=== PATIENT | female | born 1970 | race Caucasian/White ===

== ENCOUNTER 2019-07-19 08:29 | Emergency (ER) | payer OTHER, SELFPAY ==
[2019-07-19 08:39] VITALS: BP 140/91; PULSE 115; RESP 18; TEMP 36.8; O2SAT 100
--- NOTE | 2019-07-19 09:26 | ED.URI ---
HPI - URI/Sore Throat General Chief Complaint: Upper Respiratory Infection Stated Complaint: Cough Time Seen by Provider: 07/19/19 09:27 Source: patient Mode of arrival: ambulatory Limitations: no limitations History of Present Illness HPI Narrative: 49 year old female who presents to [facility] care with complaints of intermittent headaches, chills cough, hoarseness, fatigue and generalized malaise or the past 5 days. Patient states that she continues to have a dry cough, raspy voice with intermittent headaches and chills, has felt feverish at times. Patient states that she rested in bed almost all weekend and has felt weak, reports intermittent headache in frontal region, denies any sore throat or any ear pain or dizziness. Patient states that she did take a flu shot this year. MD elicited complaint: cough and other (headache, chills) Onset (ago): day(s) (since Wednesday 5 days) Consistency: intermittent Severity: mild Pain scale (0-10): 3 Description of mucous: other (dry cough) Able to tolerate fluids by mouth: Yes Exacerbating factors: exertion and deep breaths Relieving factors: nothing Associated symptoms: chills, voice changes, headache and cough Treatments prior to arrival: other (Delsym cough syrup and cold medications) Related Data Home Medications Medication Instructions Recorded Confirmed cetirizine 10 mg PO DAILY 07/19/19 07/19/19 folic acid 20 mg PO DAILY 07/19/19 07/19/19 garlic 1,000 mg PO DAILY 07/19/19 07/19/19 Allergies Allergy/AdvReac Type Severity Reaction Status Date / Time No Known Allergies Allergy Verified 07/19/19 08:46 Review of Systems Review of Systems: Narrative: CONSTITUTIONAL:Reports feverish, chills, or sweats. EYES: Denies visual changes, redness, or discharge. ENT: Denies rhinorrhea, congestion, sore throat, or otalgia. CARDIOVASCULAR: Denies chest pain, palpitations, or edema. RESPIRATORY:poitive for cough no dyspnea. GASTROINTESTINAL: Denies abdominal pain, nausea, vomiting, or diarrhea. GENITOURINARY: Denies dysuria or hematuria. SKIN: Denies rash or itching. MUSCULOSKELETAL: Denies back pain, joint pain, or myalgia. NEUROLOGIC:Positive for headache, no numbness,generalized weakness and fatigue PSYCHIATRIC: Denies anxiety or depression. All systems reviewed & are unremarkable except as noted in HPI and below PMFSH Past Medical History Medical History (Updated 07/22/19 @ 16:49 by Jammie Ford NP) No significant past medical history Surgical History Surgical History (Updated 07/22/19 @ 16:45 by Jammie Ford NP) Hx of laparoscopy Social History Social History (Updated 07/22/19 @ 16:45 by Jammie Ford NP) Smoking status: Never smoker Living arrangements: with family Gender identity (if verbalized by the patient): Female Comments At time of signature, agree with nursing past medical, social history. There is no relevant family history pertinent to the presenting complaint Exam Narrative: Exam Narrative: GENERAL: Well-appearing, well-nourished, and in no acute distress. HEAD: Normocephalic, atraumatic. EYES: PERRLA and EOMI. ENT: Nares clear, no rhinorrhea or epistaxis. Mucous membranes moist.Tm's normal with good light reflex, throat pink with no drainage or swelling, no lesions or exudate NECK: Supple.no lymphadenopathy CHEST: Clear to auscultation. No respiratory distress.SAO2 100% on room air HEART: Regular rate and rhythm. No murmur heard. Normal peripheral pulses. ABDOMEN: Soft, nontender, nondistended, normal active bowel sounds. EXTREMITIES: Normal range of motion. No edema. SKIN: Warm, dry, no rash. NEURO: No focal deficits. Alert and oriented x3. Course Vital Signs Vital signs: Vital Signs Temperature 36.8 C 07/19/19 08:39 Pulse Rate 115 H 07/19/19 08:39 Respiratory Rate 18 07/19/19 08:39 Blood Pressure 140/91 H 07/19/19 08:39 Pulse Oximetry 100 07/19/19 08:39 Temperature 36.8 C 07/19/19 08:39 Pulse Rate 11
== END 2019-07-19 09:48 | disposition home or self-care (01) ==
PROVIDERS: Emergency Provider Registered Nurse
DX: J06.9 Acute upper respiratory infection, unspecified (principal)
CPT/HCPCS: 87804; 99213; G0463

== ENCOUNTER 2020-03-26 02:15 | Emergency (ER) | payer OTHER, SELFPAY ==
[2020-03-26] VITALS (14 sets, daily range): BP systolic 106–133; BP diastolic 67–85; PULSE 74–89; RESP 14–23; TEMP 36.8; O2SAT 100
--- NOTE | ~2020-03-26 | CT_ITS ---
EXAMINATION: CT abdomen pelvis w con DATE: 03/26/2020 03:43 INDICATION: Lower abdominal pain TECHNIQUE: Computed tomography (CT) of the abdomen and pelvis was performed with 100 cc Omnipaque 350 intravenous contrast. Automated exposure control and iterative reconstruction technique were employe d. Exam dose: 293.62 mGy-cm total exam DLP. COMPARISON: None. FINDINGS: The lung bases are clear of infiltrate or consolidation. Normal heart size. No pericardial or pleural effusion. There is mild periportal and gallbladder wall edema which can be seen with aggressive hydration or ot her etiologies. The liver, spleen, pancreas, and adrenal glands and kidneys are otherwise unremarkable. No bile duct or pancreatic duct dilatation. Normal caliber of the abdominal aorta. No intraperitoneal or retroperitoneal or pelvic mass lesion or adenopathy is evident. No urinary tract calculus or hydroureteronephrosis. The urinary bladder is unremarkable. Probable right corpus luteum cyst. Bilateral probable ovarian cysts. There is mild to moderate free f luid in the pelvis and adnexal areas. The uterus measures approximately 9 cm height, up to 5 cm anter oposterior dimension. The endometrial cavity measures up to 11 mm AP dimension. This is nonspecific a nd could be due to blood within the endometrium or endometrial malignancy. Consider pelvic ultrasound examination. Included skeletal structures are unremarkable. IMPRESSION: Consider pelvic ultrasound for prominence of the endometrial cavity and mild/moderate fr ee pelvic fluid Probable ruptured right ovarian cyst, probable bilateral ovarian cysts Mild periportal and gallbladder wall edema Reviewed, dictated and finalized at [facility]. Reviewed, dictated and finalized at [facility]. IMPRESSION: Consider pelvic ultrasound for prominence of the endometrial cavit y and mild/moderate free pelvic fluid Probable ruptured right ovarian cyst, probable bilateral ovarian cysts Mild periportal and gallbladder wall edema
--- NOTE | 2020-03-26 02:13 | ED.ABDPAIN ---
HPI - Abdominal Pain General Chief Complaint: Abdominal Pain Stated Complaint: low abd pain Source: patient and EMS Mode of arrival: EMS Limitations: no limitations History of Present Illness HPI narrative: Patient is a 49-year-old female with a history of hyperlipidemia who presents for evaluation of pelvic pain. Patient states pain began suddenly approximately 1 hour prior to arrival when the patient awakened to go to the restroom, needed to urinate and after urination develop a severe cramping sensation in her lower pelvis. Pain has currently subsided quite a bit from when she initially called EMS. Pain currently rated as mild in nature in the lower pelvis without radiation. Patient denied any dysuria or hematuria. She reports she has had an achy pain in her back over the past several days. She denies any current back pain. She denies any vaginal bleeding or vaginal discharge. She is sexually active with her . Last intercourse was 2 days ago. 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 Patient has had negative test. Patient denies fever, chills, cough, chest pain, shortness of breath or upper abdominal pain. Related Data Home Medications Medication Instructions Recorded Confirmed cetirizine 10 mg PO DAILY 07/19/19 07/19/19 folic acid 20 mg PO DAILY 07/19/19 07/19/19 garlic 1,000 mg PO DAILY 07/19/19 07/19/19 multivit with min-folic acid tablet PO 03/26/20 [Adult Multivitamin Gummies] Allergies Allergy/AdvReac Type Severity Reaction Status Date / Time No Known Allergies Allergy Verified 03/26/20 02:33 Review of Systems Review of Systems: Narrative: CONSTITUTIONAL: Denies fever, chills, or sweats. ENT: Denies rhinorrhea, congestion, sore throat, or otalgia. CARDIOVASCULAR: Denies chest pain, palpitations, or edema. RESPIRATORY: Denies cough or dyspnea. GASTROINTESTINAL: Reports lower abdominal pain, pelvic pain, denies nausea, vomiting or diarrhea GENITOURINARY: Denies dysuria or hematuria. SKIN: Denies rash or itching. MUSCULOSKELETAL: Denies current back pain, joint pain, or myalgia. NEUROLOGIC: Denies headache, numbness, or weakness. [facility] [place] Past Medical History Medical History No significant past medical history Surgical History Surgical History Hx of laparoscopy Social History Social History Smoking status: Never smoker Gender identity (if verbalized by the patient): Female Exam Narrative: Exam Narrative: GENERAL: Awake, alert, conversant HEAD: Normocephalic, atraumatic. EYES: PERRLA and EOMI. ENT: Nares clear, no rhinorrhea or epistaxis. Mucous membranes moist. NECK: Supple. CHEST: No respiratory distress, breathing even and non labored HEART: Regular rate, sinus rhythm ABDOMEN:Non distended, mild suprapubic tenderness, no guarding, no focal right or left lower quadrant tenderness, no rebound, nonrigid EXTREMITIES: Normal range of motion. No edema. SKIN: Warm, dry, no rash. NEURO:No focal deficits. Alert and oriented x3 Course Vital Signs Vital signs: Vital Signs Temperature 36.8 C 03/26/20 02:16 Pulse Rate 89 03/26/20 02:16 Respiratory Rate 14 03/26/20 02:16 Blood Pressure 119/68 03/26/20 02:16 Pulse Oximetry 100 03/26/20 02:16 Temperature 36.8 C 03/26/20 02:16 Pulse Rate 84 03/26/20 03:27 Respiratory Rate 23 H 03/26/20 03:27 Blood Pressure 127/74 03/26/20 03:27 Pulse Oximetry 100 03/26/20 03:27 MDM - Abdominal Pain MDM Narrative Medical decision making narrative: Patient presented for evaluation of lower pelvic pain after urination. At the time of assessment, pain has subsided quite a bit. Very minimal tenderness on exam. No recent trauma, intercourse, vaginal discharge. No history of sexu
[2020-03-26] MEDS: SODIUM CHLORIDE 0.9% IV 1,000 ML 999 ML IV CONT (02:48)
[2020-03-26 02:59] LABS: Basophils Absolute Auto 0.1 K/mm3 (0.0-0.1); Basophils Percent Auto 1.4 % (0.2-1.2); Eosinophils Absolute Auto 0.1 K/mm3 (0-0.3); Eosinophils Percent Auto 2.9 % (0-4.4); Hematocrit 38.5 % (37.0-47.0); Hemoglobin 13.1 g/dL (12.0-15.0); Lymphocytes Percent Auto 40.5 % (18.3-44.2); Mean Corpuscular Hemoglobin 32.3 pg (26-34); Mean Corpuscular Volume 94.8 fl (80-100); Mean Platelet Volume 9.3 fl (7.4-10.4); Monocytes Absolute Auto 0.3 K/mm3 (0.1-0.6); Monocytes Percent Auto 7.5 % (2.6-8.5); Neutrophils Absolute Auto 1.7 K/mm3 (1.3-6.7); Neutrophils Percent Auto 47.7 % (45.5-73.1); Platelet Count Result 184 k/mm3 (150-375); Red Blood Count 4.06 M/mm3 (4.2-5.4); Red Cell Distribution Width 12.8 % (11.5-14.5); White Blood Count 3.5 K/mm3 (4.5-10.0)
[2020-03-26 03:12] LABS: Alanine Aminotransferase 15 U/L (4-35); Albumin Level 3.7 g/dL (3.5-5.1); Alkaline Phosphatase 69 U/L (38-126); Anion Gap 5 mmol/L (8-16); Aspartate Amino Transferase 24 U/L (14-36); Bilirubin,Total 0.6 mg/dL (0.2-1.3); Blood Urea Nitrogen 10 mg/dL (7-17); Calcium 8.8 mg/dL (8.4-10.2); Carbon Dioxide 31 mmol/L (22-30); Chloride 102 mmol/L (98-107); Estimated CRCL calculation 83 ml/min; Estimated Glomerular Filt Rate > 60; Glucose 95 mg/dL (65-105); Lipase 286 U/L (23-300); Potassium 3.7 mmol/L (3.4-5.0); Sodium 138 mmol/L (137-145)
[2020-03-26 03:51] LABS: Add Urine Microscopic? YES; Appearance Urine Clear (Clear); Bacteria Urine Trace /hpf; Bilirubin Urine Negative (Negative); Blood Urine Negative (Negative); Color Urine Straw (Yellow); Glucose Urine UA Negative (Negative); Ketones Urine Negative (Negative); Leukocyte Esterase Ur 1+ LEU/UL (Negative); Mucus Urine Rare /lpf; Nitrate Urine Negative (Negative); Protein Urine Negative (Negative); RBC Urine 0-2 /hpf (0-2); Squamous Epithelial Cell Urine Moderate /hpf (Few); Urobilinogen Urine Negative mg/dL (<2.0); WBC Urine 21-30 /hpf
== END 2020-03-26 05:15 | disposition home or self-care (01) ==
PROVIDERS: Emergency Provider Emergency Medicine
DX: R10.30 Lower abdominal pain, unspecified (principal); E78.5 Hyperlipidemia, unspecified; R93.89 Abnormal findings on diagnostic imaging of other specified body structures; R93.2 Abnormal findings on diagnostic imaging of liver and biliary tract
CPT/HCPCS: 36415; 74177; 80053; 81001; 81025; 82948; 83690; 85025; 87086; 87088; 96365; 99284; J0131; J7030; Q9967

== ENCOUNTER 2023-05-03 01:12 | Day surgery (SDC) | payer OTHER, SELFPAY ==
[2023-04-15 13:52] VITALS: BMI 22.3
--- NOTE | 2023-04-30 08:57 | SUR.PREOP ---
Patient called regarding upcoming procedure. Reviewed preop instructions, appointment times, and procedure prep.
--- NOTE | 2023-04-30 14:38 | PM.HPGS ---
History of Present Illness History of Present Illness Consent: Risks, benefits, and alternatives have been discussed and questions answered. Patient agrees to proceed with procedure. Chief complaint: family hx colon ca Narrative: Salima Soriano is a 53 year old female Referred for colon cancer screening. Review of Systems Review of Systems: All systems reviewed & are unremarkable except as noted in HPI and below PMFSH Past Medical History Medical History No significant past medical history Surgical History Surgical History Hx of laparoscopy Social History Social History Smoking status: Never smoker Alcohol intake: never Substance use type: does not use Living arrangements: with family Gender identity (if verbalized by the patient): Female Spiritual care concerns: No Meds Home Medications and Allergies Home Medications Medication Instructions Recorded Confirmed Type cetirizine 10 mg tablet 10 mg PO DAILY 07/19/19 05/03/23 History folic acid 20 mg capsule 20 mg PO DAILY 07/19/19 05/03/23 History garlic 1,000 mg capsule 1,000 mg PO DAILY 07/19/19 05/03/23 History multivitamin with minerals-folic 1 tablet PO DAILY 03/26/20 05/03/23 History acid 200 mcg chewable tablet (Adult Multivitamin Gummies) Allergies Allergy/AdvReac Type Severity Reaction Status Date / Time No Known Allergies Allergy Verified 05/03/23 08:19 Exam Resp: Auscultation: clear to auscultation bilaterally Cardio: Rate: regular rate Rhythm: regular rhythm GI: GI Palp: Yes Soft to palpation and No Tenderness to palpation present (GI) Assessment and Plan Assessment and plan (1) Colon cancer screening: Code(s): Z12.11 - Encounter for screening for malignant neoplasm of colon Status: Acute Assessment and Plan: Colonoscopy with possible biopsy or polypectomy or cautery or injection of substances.
[2023-05-03 08:10] VITALS: BP 125/71; PULSE 93; RESP 16; TEMP 36.6; O2SAT 100; BMI 22.6
[2023-05-03] MEDS: LACTATED RINGERS 1,000 ML 150 ML IV CONT (08:34)
--- NOTE | 2023-05-03 08:59 | P.PNAN_ITS ---
Anes - Initial Pre Proc Eval Procedure: Operation Date: 05/03/23 09:30 Proposed Procedures p Colonoscopy - Bubba Morin MD Date/Time: 05/03/23 08:59 Surgeon: Bubba Morin MD Pre Op Diagnosis: family hx colon ca Patient Data Age: 53 Gender: F Height: 1.63 m Weight: 59.7 kg Last Vital Signs Temp 97.9 F 05/03/23 08:10 Pulse 93 05/03/23 08:10 Resp 16 05/03/23 08:10 BP 125/71 05/03/23 08:10 Pulse Ox 100 05/03/23 08:10 O2 Del Method Room Air 05/03/23 08:10 Allergies Allergy/AdvReac Type Severity Reaction Status Date / Time No Known Allergies Allergy Verified 05/03/23 08:19 Home Medications Medication Instructions Recorded Confirmed Type cetirizine 10 mg tablet 10 mg PO DAILY 07/19/19 05/03/23 History folic acid 20 mg capsule 20 mg PO DAILY 07/19/19 05/03/23 History garlic 1,000 mg capsule 1,000 mg PO DAILY 07/19/19 05/03/23 History multivitamin with minerals-folic 1 tablet PO DAILY 03/26/20 05/03/23 History acid 200 mcg chewable tablet (Adult Multivitamin Gummies) Patient hx anesthesia problems: none Family hx anesthesia problems: none Results Review: All pre-operative results and documents have been reviewed as part of the pre- operative evaluation. PMFSH Past Medical History Medical History No significant past medical history Surgical History Surgical History Hx of laparoscopy Social History Social History Smoking status: Never smoker Alcohol intake: never Substance use type: does not use Living arrangements: with family Gender identity (if verbalized by the patient): Female Spiritual care concerns: No Anes - Eval Final PreProcedure Day of Procedure 05/03/23 08:59 Patient weight: normal Heart: regular rate and rhythm Lungs: clear to auscultation Airway: Mallampati scale class II Neurological: alert and oriented Last oral intake: >/= 8 hours ASA classification: II Emergent: no Anesthetic plan: proceed Anesthesia type and monitoring: general GIVS and standard monitoring Results Review: All pre-operative results and documents have been reviewed as part of the pre- operative evaluation. Informed Consent: The patient's anesthetic plan and its attendant risks and benefits were discussed with the patient/family/POA. Questions were solicited and answers provided to the satisfaction of the patient/family/POA.
[2023-05-03 09:38] VITALS: BP 103/64; PULSE 90; RESP 23; O2SAT 99
[2023-05-03 09:48] VITALS: BP 99/67; PULSE 81; RESP 23; O2SAT 100
[2023-05-03 09:58] VITALS: BP 110/76; PULSE 79; RESP 22; O2SAT 100
== END 2023-05-03 10:07 | disposition home or self-care (01) ==
PROVIDERS: Visit Provider Internal Medicine Gastroenterology
PROC: 0DJD8ZZ Inspection of Lower Intestinal Tract, Via Natural or Artificial Opening Endoscopic (ICD-10-PCS; CPT 45378; principal; 2023-05-03 09:30)
DX: Z12.11 Encounter for screening for malignant neoplasm of colon (principal); K57.30 Diverticulosis of large intestine without perforation or abscess without bleeding; Z80.0 Family history of malignant neoplasm of digestive organs
CPT/HCPCS: 45378; J2704; J7120